=== PATIENT | female | born 1935 | race Caucasian/White ===

== ENCOUNTER 2020-10-07 22:31 | Inpatient (IN) | payer MEDICARE ==
[~2020-10-07] VITALS: Ht 170.2 cm; Wt 70.3 kg
[2020-10-07] MEDS ORDERED: ASPI81TA31 PO (22:50)
[2020-10-07] MEDS ORDERED: DULO20CA PO (22:50)
[2020-10-07] MEDS ORDERED: METO-357 PO (22:50)
[2020-10-07] MEDS ORDERED: MORPHINE SULFATE 2 MG/1 ML DISP.SYRIN ONE (23:07)
--- NOTE | 2020-10-07 23:30 | NUR ---
Patient BIB private ambulance from [facility] on a 5150 hold DTS to be medically cleared to be admitted to MHU. Patient calm and cooperative at this time. No distress noted.
--- NOTE | 2020-10-07 23:40 | NUR ---
Medically cleared by DR Pollard.
--- NOTE | 2020-10-08 00:05 | NUR ---
Transfered to MHU via wheelchair with no distress noted.
[2020-10-08] MEDS ORDERED: BLOOD SUGAR DIAGNOSTIC 1 EACH STRIP VI ONE (00:15)
[2020-10-08] MEDS ORDERED: ACETAMINOPHEN 325 MG TABLET PO PRN (00:15)
[2020-10-08] MEDS ORDERED: LORAZEPAM 0.5 MG TABLET PO PRN ×2 (00:15→12:45)
[2020-10-08] MEDS ORDERED: ZOLPIDEM 5 MG TABLET PO PRN (00:15)
[2020-10-08] MEDS ORDERED: MAGNESIUM HYDROXIDE 30 ML LIQUID UDC PO PRN (00:15)
[2020-10-08] MEDS ORDERED: MAG HYDROX/AL HYDROX/SIMETH 30 ML LIQUID UDC PO PRN (00:15)
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
[2020-10-08 07:30] VITALS: BP 150/80
[2020-10-08 08:04] LABS: BILIRUBIN,TOTAL 0.6 mg/dL (0.2-1.0); CREATININE 1.1 mg/dL (0.6-1.3); POTASSIUM 4.5 mmol/L (3.5-5.1); TOTAL PROTEIN, SERUM 6.8 g/dL (6.4-8.2)
[2020-10-08] MEDS: ASPIRIN 81 MG TAB.CHEW PO SCH (08:05)
[2020-10-08] MEDS: METOPROLOL SUCCINATE XL 50 MG TAB.SR.24H PO SCH (08:05)
--- NOTE | 2020-10-08 08:27 | NUR ---
Firearms Report: Corporate Investigator completed and submitted a [employer] firearms report for 5150 grave disability certification. A copy of report has been placed in patient chart.
--- NOTE | 2020-10-08 10:39 | NUR ---
Initial Discharge Plan: Patient currently resides alone at [address] [place] [address] [address], [place] [address]; ([phone]). Patient does not have any family members. Patient has a therapist Roland Watkins ([phone]). This SW left a voicemail. ROXY will work with the treatment team and pt to help coordinate discharge.
[2020-10-08] MEDS: DULOXETINE 30 MG CAPSULE.DR PO SCH (13:14)
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
[2020-10-08 16:38] VITALS: BP 143/75
[2020-10-08] MEDS: DIVALPROEX 250 MG TABLET.DR PO SCH (20:00)
[2020-10-08 20:05] VITALS: BP 136/76
--- NOTE | 2020-10-08 21:20 | NUR ---
Received pt resting in bed and talking to her roommate. AAO x2-3. No acute distress noted. Denies SI. Meds given as ordered. Pt is compliant with care. Safety measures maintained. Will continue to monitor.
[2020-10-09 07:30] VITALS: BP 144/84
[2020-10-09] MEDS: ARIPIPRAZOLE 2 MG TABLET PO SCH (08:11)
[2020-10-09] MEDS: DIVALPROEX 250 MG TABLET.DR PO SCH ×2 (08:11→20:17)
[2020-10-09] MEDS: METOPROLOL SUCCINATE XL 50 MG TAB.SR.24H PO SCH (08:11)
[2020-10-09] MEDS: DULOXETINE 30 MG CAPSULE.DR PO SCH (08:11)
[2020-10-09] MEDS: ASPIRIN 81 MG TAB.CHEW PO SCH (08:11)
[2020-10-09 15:49] VITALS: BP 114/70
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
[2020-10-09 20:10] VITALS: BP 159/77
--- NOTE | 2020-10-10 06:18 | NUR ---
PATIENT SLEPT FOR APPROX. 7.15 HRS THROUGH THE NIGHT. SHE DENIED SI. FIXED ON BEING DISCHARGED. WILL CONTINUE TO MONITOR.
[2020-10-10 07:30] VITALS: BP 169/84
[2020-10-10] MEDS: DIVALPROEX 250 MG TABLET.DR PO SCH ×2 (08:01→20:20)
[2020-10-10] MEDS: METOPROLOL SUCCINATE XL 50 MG TAB.SR.24H PO SCH (08:01)
[2020-10-10] MEDS: ASPIRIN 81 MG TAB.CHEW PO SCH (08:01)
[2020-10-10] MEDS: ARIPIPRAZOLE 2 MG TABLET PO SCH (08:01)
[2020-10-10] MEDS: DULOXETINE 30 MG CAPSULE.DR PO SCH (08:01)
[2020-10-10 14:49] VITALS: BP 147/76
[2020-10-10 20:03] VITALS: BP 150/67
[2020-10-11 07:30] VITALS: BP 131/74
[2020-10-11] MEDS: ASPIRIN 81 MG TAB.CHEW PO SCH (08:19)
[2020-10-11] MEDS: ARIPIPRAZOLE 2 MG TABLET PO SCH (08:19)
[2020-10-11] MEDS: DIVALPROEX 250 MG TABLET.DR PO SCH ×2 (08:19→20:03)
[2020-10-11] MEDS: DULOXETINE 30 MG CAPSULE.DR PO SCH (08:19)
[2020-10-11] MEDS: METOPROLOL SUCCINATE XL 50 MG TAB.SR.24H PO SCH (08:19)
[2020-10-11 15:10] VITALS: BP 133/73
[2020-10-11 19:56] VITALS: BP 112/75
[2020-10-12 07:30] VITALS: BP 148/80
[2020-10-12] MEDS: DIVALPROEX 250 MG TABLET.DR PO SCH ×3 (08:05→20:09)
[2020-10-12] MEDS: DULOXETINE 30 MG CAPSULE.DR PO SCH (08:05)
[2020-10-12] MEDS: ARIPIPRAZOLE 5 MG TABLET PO SCH (08:05)
[2020-10-12] MEDS: ASPIRIN 81 MG TAB.CHEW PO SCH (08:05)
[2020-10-12] MEDS: METOPROLOL SUCCINATE XL 50 MG TAB.SR.24H PO SCH (08:06)
--- NOTE | 2020-10-12 11:54 | NUR ---
ROXY Coordination of Care: Patient will follow up with (Oliving Machine Operator) Dr. Harrison located at [address] [place] [address]; ([phone]) on December 29 at 1PM scheduled with Elke. Patient will follow up with (psychiatrist) Dr. Jewel Deal located at [facility] [place] [address]; ([phone]) on October 21 at 2PM via telehealth scheduled with Ronnell.
[2020-10-12 16:00] VITALS: BP 156/80
[2020-10-12 20:10] VITALS: BP 151/78
--- NOTE | 2020-10-12 22:44 | NUR ---
RECEIVED PATIENT SLEEPING INTERMITTENTLY. NOT IN DISTRESS AND MADE NO COMPLIANT OF PAIN. NOTED ISOLATIVE WITH POOR JUDGEMENT AND INSIGHT.SHE IS HOWEVER MEDICATION COMPLIANT. FALL PRECAUTIONS PUT IN PLACE FOR HER SAFETY. WILL CONTINUE TO MONITOR.
--- NOTE | 2020-10-13 06:27 | NUR ---
SHE SLEPT WELL FOR 09:30 HOURS.
[2020-10-13 07:30] VITALS: BP 155/81
[2020-10-13] MEDS: DIVALPROEX 250 MG TABLET.DR PO SCH ×2 (08:20→20:29)
[2020-10-13] MEDS: ARIPIPRAZOLE 5 MG TABLET PO SCH (08:20)
[2020-10-13] MEDS: ASPIRIN 81 MG TAB.CHEW PO SCH (08:20)
[2020-10-13] MEDS: METOPROLOL SUCCINATE XL 50 MG TAB.SR.24H PO SCH (08:21)
[2020-10-13] MEDS: DULOXETINE 30 MG CAPSULE.DR PO SCH (08:21)
--- NOTE | 2020-10-13 09:58 | NUR ---
Therapist Contact: This SW contacted patient's therapist Roland ([phone]) and wanted to gather information of pt's neighbors number if he were to have it and to tell the neighbor she would be coming back home once pt is stable, per doctor Bhaskar's request.
--- NOTE | 2020-10-13 11:48 | NUR ---
ROXY PC Hearing: Patient had probable cause hearing today and it was upheld for grave disability.
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
--- NOTE | 2020-10-13 20:10 | NUR ---
PATIENT RECEIVED IN THE ACTIVITIES ROOM INTERACTING WITH PEERS. PATIENT IS HYPERVERBAL, COOPERATIVE, AND CALM. PATIENT IN NO APPARENT DISTRESS. PATIENT COMPLAINT WITH MEDICATION. SAFE ENVIRONMENT, FREQUENT ROUNDING,AND CLUTTER FREE ENVIRONMENT. BED IN LOWEST POSITION AND BED LOCKED. NO AGGRESSIVE OR COMBATIVE BEHAVIOR NOTED. PATIENT DENIES SI.
[2020-10-13 20:36] VITALS: BP 149/80
[2020-10-13 22:01] LABS: *BILIRUBIN,URIN NEGATIVE (NEGATIVE); *CLARITY,URINE SLIGHTLY CLOUDY (CLEAR); *COLOR,URINE YELLOW (YELLOW); *KETONES,URINE NEGATIVE (NEGATIVE); LEUKOCYTE ESTERASE ,URINE TRACE (NEGATIVE); NITRITE, URINE POSITIVE (NEGATIVE); PH,URINE 6.5 (5.0-8.0); UGLUCOSE NEGATIVE (NEGATIVE)
[2020-10-13 22:04] LABS: *BLOOD, URINE TRACE (NEGATIVE)
[2020-10-13 22:10] LABS: BACTERIA,URINE MANY /HPF (NONE SEEN); MUCUS,URINE FEW /LPF (0-FEW); SQUAMOUS EPITHELIAL CELL,UR FEW /HPF (NONE SEEN); URINE AMORPHOUS URATE FEW /HPF
[2020-10-14 07:30] VITALS: BP 171/81
--- NOTE | 2020-10-14 07:30 | NUR ---
Received patient AOx3-4, patient calm cooperative, patient compliant with her medication, patient denies SI and HI, patient was put on monitoring for safety, patient stayed in her room, no sign of distress
[2020-10-14] MEDS: DULOXETINE 30 MG CAPSULE.DR PO SCH (08:23)
[2020-10-14] MEDS: ASPIRIN 81 MG TAB.CHEW PO SCH (08:23)
[2020-10-14] MEDS: ARIPIPRAZOLE 5 MG TABLET PO SCH (08:23)
[2020-10-14] MEDS: CEphaleXIN 500 MG CAPSULE PO SCH ×2 (08:23→16:17)
[2020-10-14] MEDS: DIVALPROEX 250 MG TABLET.DR PO SCH ×2 (08:23→20:12)
[2020-10-14] MEDS: METOPROLOL SUCCINATE XL 50 MG TAB.SR.24H PO SCH (08:24)
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
[2020-10-14 16:41] VITALS: BP 137/89
--- NOTE | 2020-10-14 19:05 | NUR ---
PATIENT HAS BEEN CALM , NO SIGN OF DISTRESS, ASSISTED WITH ADL,
[2020-10-14 20:12] VITALS: BP 134/71
[2020-10-15 07:30] VITALS: BP 153/67
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
[2020-10-15] MEDS: ASPIRIN 81 MG TAB.CHEW PO SCH (08:07)
[2020-10-15] MEDS: DIVALPROEX 250 MG TABLET.DR PO SCH ×2 (08:09→20:29)
[2020-10-15] MEDS: DULOXETINE 30 MG CAPSULE.DR PO SCH (08:09)
[2020-10-15] MEDS: CEphaleXIN 500 MG CAPSULE PO SCH ×2 (08:09→16:25)
[2020-10-15] MEDS: ARIPIPRAZOLE 5 MG TABLET PO SCH (08:09)
[2020-10-15] MEDS: METOPROLOL SUCCINATE XL 50 MG TAB.SR.24H PO SCH (08:10)
--- NOTE | 2020-10-15 15:31 | NUR ---
Individual Counseling: jet worker met with patient for brief counseling and assessed for level of suicidality. jet worker assessed for suicidal thoughts, patient denied suicidal thoughts. Patient was fixated on discharged and stated "she needs to leave". SW was unable to conduct therapy at this moment.
[2020-10-15 16:00] VITALS: BP 124/76
--- NOTE | 2020-10-15 18:17 | NUR ---
EOSS: Pt in dining room watching TV, minimal interaction with peers. No acute distress, no complaints. Continues to deny SI, however minimizes symptoms. Per pt: "I am not a mental health patient". All due medications administered per order, pt compliant, no a/r noted. CFS. Safety measures and frequent rounding implemented. Redirection and reassurance PRN. Will endorse care to night clerk.
[2020-10-15 20:12] VITALS: BP 136/71
[2020-10-16 07:30] VITALS: BP 136/76
--- NOTE | 2020-10-16 07:30 | NUR ---
REceived patient calm , cooperative, patient labile, easily irritable needed, redirection , patient isolative was on [id number] monitoring for safety
[2020-10-16] MEDS: ARIPIPRAZOLE 5 MG TABLET PO SCH (08:10)
[2020-10-16] MEDS: DULOXETINE 30 MG CAPSULE.DR PO SCH (08:11)
[2020-10-16] MEDS: ASPIRIN 81 MG TAB.CHEW PO SCH (08:11)
[2020-10-16] MEDS: CEphaleXIN 500 MG CAPSULE PO SCH ×2 (08:11→16:12)
[2020-10-16] MEDS: METOPROLOL SUCCINATE XL 50 MG TAB.SR.24H PO SCH (08:19)
[2020-10-16] MEDS: DIVALPROEX 250 MG TABLET.DR PO SCH ×2 (09:00→20:19)
[2020-10-16 16:00] VITALS: BP 160/73
--- NOTE | 2020-10-16 18:25 | NUR ---
patient seen in the dining room, watching TV, needy, staff splitting, patient easily irritable, but able to be redirect, patient monitored q 15 minutes , mostly stayed in her room, no sign of distress
[2020-10-16 19:50] VITALS: BP 152/73
--- NOTE | 2020-10-16 23:42 | NUR ---
Resting in bed upon initial rounds. AAOx 2-3 . Compliant with meds. No behavioral issues noted. VSS. Continent of bowel and bladder. Patient on ABT for UTI. Will monitor patient. Calm and cooperative.
--- NOTE | 2020-10-17 06:29 | NUR ---
Leanna had 7.45 hrs of sleep. No acute distress noted. Quiet night. No agitation noted. Attended to all needs and met. Continent of bowel and bladder. No BM noted.
[2020-10-17 07:30] VITALS: BP 140/81
--- NOTE | 2020-10-17 07:30 | NUR ---
Received patient AOx3, patient calm sleeping in her room, patient compliant with medication, patient on [id number] monitoring for safety, patient denies any discomfort and no distress at this time
[2020-10-17] MEDS: ARIPIPRAZOLE 5 MG TABLET PO SCH (08:13)
[2020-10-17] MEDS: CEphaleXIN 500 MG CAPSULE PO SCH ×2 (08:13→16:02)
[2020-10-17] MEDS: DIVALPROEX 250 MG TABLET.DR PO SCH ×2 (08:14→20:30)
[2020-10-17] MEDS: DULOXETINE 30 MG CAPSULE.DR PO SCH (08:14)
[2020-10-17] MEDS: ASPIRIN 81 MG TAB.CHEW PO SCH (08:14)
[2020-10-17] MEDS: METOPROLOL SUCCINATE XL 50 MG TAB.SR.24H PO SCH (08:15)
[2020-10-17 16:00] VITALS: BP 118/73
[2020-10-17 20:00] VITALS: BP 126/60
--- NOTE | 2020-10-18 02:08 | NUR ---
RECEIVED PATIENT IN BED AWAKE. NOT IN DISTRESS AND NO C/O PAIN MADE.SHE IS MEDICATION COMPLIANT AND CONTINUES WITH BACTRIM DS FOR UTI. LIBERAL FLUIDS ENCOURAGED.DENIES SI/HI HOWEVER EASILY IRRITABLE BUT RE DIRECTED. SAFE ENVIRONMENT PROVIDED. WILL CONTINUE TO MONITOR.
--- NOTE | 2020-10-18 06:27 | NUR ---
SHE SLEPT WELL FOR 10HOURS.
[2020-10-18 07:30] VITALS: BP 120/54
[2020-10-18] MEDS: ARIPIPRAZOLE 5 MG TABLET PO SCH (09:20)
[2020-10-18] MEDS: CEphaleXIN 500 MG CAPSULE PO SCH ×2 (09:21→17:07)
[2020-10-18] MEDS: DIVALPROEX 250 MG TABLET.DR PO SCH ×2 (09:21→20:08)
[2020-10-18] MEDS: DULOXETINE 30 MG CAPSULE.DR PO SCH (09:21)
[2020-10-18] MEDS: METOPROLOL SUCCINATE XL 50 MG TAB.SR.24H PO SCH (09:21)
[2020-10-18] MEDS: ASPIRIN 81 MG TAB.CHEW PO SCH (09:25)
--- NOTE | 2020-10-18 15:53 | NUR ---
NO SI noted. Pt denies any si tendencies. Denies any c/o pain. Negative Nia Signs. Pt cooperative with plan of care. Pt ambulates with good balance. Noted Dry Scab on 2nd metatarsal foot.
[2020-10-18 20:01] VITALS: BP 127/73
[2020-10-19 07:30] VITALS: BP 152/63
--- NOTE | 2020-10-19 08:00 | NUR ---
RECEIVED PT AWAKE, ALERT AND ORIENTEDX3. PT IN NO ACUTE DISTRESS. PT PLEASANT WHEN APPROACHED. SAFETY AND COMFORT PROVIDED. WILL CONTINUE TO MONITOR.
[2020-10-19] MEDS: ARIPIPRAZOLE 5 MG TABLET PO SCH (08:01)
[2020-10-19] MEDS: CEphaleXIN 500 MG CAPSULE PO SCH (08:01)
[2020-10-19] MEDS: ASPIRIN 81 MG TAB.CHEW PO SCH (08:01)
[2020-10-19] MEDS: DULOXETINE 30 MG CAPSULE.DR PO SCH (08:02)
[2020-10-19] MEDS: DIVALPROEX 250 MG TABLET.DR PO SCH ×2 (08:02→20:19)
[2020-10-19] MEDS: METOPROLOL SUCCINATE XL 50 MG TAB.SR.24H PO SCH (08:10)
--- NOTE | 2020-10-19 10:31 | NUR ---
Individual Counseling: transfer worker met with patient for brief counseling and assessed for level of suicidality. transfer worker assessed for suicidal thoughts, patient denied suicidal thoughts. Patient stated "No, I have never felt suicidal or homicidal, I don't know why people keep asking me this". SW was unable to conduct therapy at this time because pt was not cooperative.
--- NOTE | 2020-10-19 14:31 | NUR ---
Transportation: Transportation was arranged through [facility] ([phone]) Mireya who arranged Lyft at 1:50PM.
--- NOTE | 2020-10-19 14:45 | NUR ---
PT IN NO ACUTE DISTRESS. COMPLIANT WITH CARE. PRESCRIBED MEDICATION GIVEN AND PT TOLERATED IT WELL. SAFETY AND COMFORT PROVIDED. WILL ENDORSE TO INCOMING NURSE.
--- NOTE | 2020-10-19 15:16 | NUR ---
Therapist Contact: This SW attempted to contact patient's therapist Roland ([phone]) and his mailbox was full. This SW was unable to leave a voicemail at this time.
[2020-10-19 16:00] VITALS: BP 138/74
[2020-10-19 20:27] VITALS: BP 142/69
[2020-10-20 07:30] VITALS: BP 141/76
--- NOTE | 2020-10-20 08:07 | NUR ---
Discharge Note: Patient will return home [address], [place] [address]; ([phone]). Transportation will be arranged through [facility] ([phone]) Mireya who arranged Lyft at 1:50PM. Patient does not have any family members at this time. Patient presented alert and oriented x3. Upon discharge, patient appeared happy to be going home. Patient denies suicidal or homicidal ideation. Patient denies visual/auditory hallucinations. Patient will follow up with (Long Wall Shear Operator) Dr. Harrison located at [address] [place] [address]; ([phone]) on December 29 at 1PM scheduled with Elke. Patient will follow up with (psychiatrist) Dr. Jewel Deal located at [address] [place] [address]; ([phone]) on October 21 at 2PM via telehealth scheduled with Ronnell. Patient will follow up with her therapist Roland Bucio ([phone]). Patient was provided referrals to the following substance abuse programs: [facility] Self-helpline ([phone]); [facility] [address] [place] [address] ([phone]); [place] [id number] [facility] [place] [address] ([phone]); [facility] ([phone]); [facility] ([phone]); [facility] ([phone]); [facility] ([phone]). Patient presented with euthymic mood and congruent affect.
[2020-10-20] MEDS: ARIPIPRAZOLE 5 MG TABLET PO SCH (09:06)
[2020-10-20] MEDS: DULOXETINE 30 MG CAPSULE.DR PO SCH (09:06)
[2020-10-20 09:07] VITALS: BP 146/96
[2020-10-20] MEDS: METOPROLOL SUCCINATE XL 50 MG TAB.SR.24H PO SCH (09:07)
[2020-10-20] MEDS: DIVALPROEX 250 MG TABLET.DR PO SCH (09:07)
[2020-10-20] MEDS: ASPIRIN 81 MG TAB.CHEW PO SCH (09:07)
--- NOTE | 2020-10-20 10:32 | NUR ---
Individual Counseling: bin worker met with patient for brief counseling and assessed for level of suicidality. bin worker assessed for suicidal thoughts, patient denied suicidal thoughts. Patient stated she is excited to go back home. Patient stated that she has "a lot of things to do at home". This SW informed patient if she were to need to talk to someone she should reach out to her counselor Roland. Patient is aware of this.
--- NOTE | 2020-10-20 13:12 | NUR ---
Therapist Contact: This SW attempted to contact patient's therapist Roland ([phone]) and his mailbox was full. This SW was unable to leave a voicemail at this time.
--- NOTE | 2020-10-20 14:00 | NUR ---
Pt is being discharged home via Lyft. Pt is wanting to go. Hold is discontinued. Pt is provided with a list of the resources in the community as long as two follow up appointments. Pt was provided with discharge instructions and patient verbalizes understanding. All belongings returned.
--- NOTE | 2020-10-20 15:28 | NUR ---
Therapist Contact: This SW contacted patient's therapist Roland ([phone]) and stated patient was discharged today at 2:30PM. He stated he will reach out to patient.
== END 2020-10-20 14:00 | disposition home or self-care (01) | DRG 885 ==
LOC: ER 22:34 → GPS 23:55
PROVIDERS: ADMIT Psychiatry & Neurology Psychiatry; ATTEND Internal Medicine
DX: F33.3 Major depressive disorder, recurrent, severe with psychotic symptoms (principal); R45.851 Suicidal ideations; N39.0 Urinary tract infection, site not specified; E78.5 Hyperlipidemia, unspecified; F03.90 Unspecified dementia, unspecified severity, without behavioral disturbance, psychotic disturbance, mood disturbance, and anxiety; Z79.82 Long term (current) use of aspirin; B96.89 Other specified bacterial agents as the cause of diseases classified elsewhere
CPT/HCPCS: 36415; 80164; 87086; A4663; J2270; J3490